=== PATIENT | female | born 1940 | race Caucasian/White ===

== ENCOUNTER → 2018-01-17 | Outpatient (CLI) | payer MEDICARE, BC ==
--- NOTE | 2018-01-17 17:32 | Diagnostic Imaging Report ---
PROCEDURE: US THYROID COMPARISON: None. INDICATIONS:History of parathyroid adenoma excision in 2012. History of left thyroidectomy TECHNIQUE: Transverse and longitudinal herron-scale sonographic images of the thyroid were obtained and supplemented with color doppler. FINDINGS: Right thyroid lobe: 4.6 x 1.7 x 1.9 cm, normal. Normal echogenicity and vascularity. * 1.1 x 0.5 x 0.9 cm mixed solid and cystic nodule in the mid aspect, with smooth margin, wider than tall, isoechoic, and no calcifications (TR2, Not Suspicious: No FNA). * 0.4 x 0.5 x 0.4 cm cystic, lesion in the mid aspect, smooth margin, wider than tall, anechoic and no calcifications likely representing a colloid cyst (TR1, Benign: No FNA) * 0.2 x 0.2 x 0.3 cm solid nodule in the mid aspect, ill-defined margin, wider than tall, hyperechoic, and no calcifications (TR3a (< 1.5 cm): No follow up). * 0.8 x 0.7 x 0.8 cm solid nodule in the inferolateral aspect, ill-defined margin, wider than tall, isoechoic, and no calcifications (TR3a (<1.5cm): No follow up). Left thyroid lobe: Absent Isthmus: 0.4 cm. Normal echogenicity and vascularity. No focal lesions. No adenopathy or extrathyroidal masses are identified. CONCLUSION: 1. Normal right thyroid lobe size and echogenicity. Absent left thyroid lobe. 2. Right lower lobe nodules, as described above, which do not meet criteria for followup or FNA per [facility]. 3. 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 Ubaldo Grace M.D. Dictated by: Ubaldo Grace M.D. on 01/17/2018 at 17:36 Electronically approved by: Ubaldo Grace M.D. on 01/17/2018 at 17:36
== END ==
LOC: US 14:28
PROVIDERS: ATTEND Otolaryngology
DX: D35.1 Benign neoplasm of parathyroid gland (principal)
CPT/HCPCS: 76536